=== PATIENT | female | born 2000 | race African-American/Black ===

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

== ENCOUNTER 2020-05-12 22:16 | Emergency (ER) | payer BC ==
[2020-05-12] MEDS ORDERED: Lidocaine 1% 20 ML MDV ONE (22:45)
[2020-05-12] MEDS ORDERED: Bacitracin 1 PK ONE ×2 (23:01→23:16)
== END 2020-05-12 23:25 | disposition home or self-care (01) ==
LOC: MADERS 22:16
DX: S60.511A Abrasion of right hand, initial encounter (principal); W25.XXXA Contact with sharp glass, initial encounter
CPT/HCPCS: 99282; J2001

== ENCOUNTER 2020-12-16 11:50 | Emergency (ER) | payer BC, OTHER ==
[2020-12-16] MEDS ORDERED: Fluorescein Opthalmic Strip ONE (12:20)
[2020-12-16] MEDS ORDERED: Tetracaine 0.5% PF 4 ML BOT ONE (12:20)
== END 2020-12-16 12:38 | disposition home or self-care (01) ==
LOC: MADERS 11:50
DX: N39.0 Urinary tract infection, site not specified (principal); N13.2 Hydronephrosis with renal and ureteral calculous obstruction
CPT/HCPCS: 99283

== ENCOUNTER 2021-01-26 22:20 | Emergency (ER) | payer BC, OTHER ==
[2021-01-26] MEDS ORDERED: Ondansetron ODT 4 MG TAB ONE (22:55)
[2021-01-26] MEDS ORDERED: HYDROcodone/Acetaminophen 10/325 mg Tablet ONE (22:55)
== END 2021-01-26 22:59 | disposition home or self-care (01) ==
LOC: MADERS 22:20
DX: G43.919 Migraine, unspecified, intractable, without status migrainosus (principal)
CPT/HCPCS: 99283; Q0162

== ENCOUNTER 2021-08-13 11:35 | Emergency (ER) | payer BC ==
[2021-08-14 14:28] LABS: SARS-CoV-2 PCR by NAA Not Detected (NotDetected)
== END 2021-08-13 12:02 | disposition home or self-care (01) ==
LOC: MADERS 11:35
DX: Z20.822 Contact with and (suspected) exposure to COVID-19 (principal)
CPT/HCPCS: 99283; U0003; U0005